=== PATIENT | female | born 1990 | race Caucasian/White ===

== ENCOUNTER 2016-12-17 18:29 | Emergency (ER) | payer OTHER ==
[~2016-12-17] VITALS: Ht 172.7 cm; Wt 80.7 kg
[2016-12-17 17:27] VITALS: BP 113/76
[~2016-12-17 18:29] MED LIST: BENADRYL ALLERG25 M1 PO; PRENATAL LOW IR1 TA1 PO
[2016-12-17 19:14] VITALS: BP 117/73
--- NOTE | 2016-12-17 20:05 | NUR ---
PT TAKEN TO BED 5
--- NOTE | 2016-12-17 20:10 | NUR ---
C/O RIGHT SIDED TIDWELL X 2 DAYS---NO INJURY DENIED N/V. WENT TO L&D TODAY, CLEARED CURRENT FHT 135---37 3/7 WKS IUP
--- NOTE | 2016-12-17 20:22 | NUR ---
Dr. Webster evaluating patient at bedside.
[2016-12-17] MEDS ORDERED: KETOROLAC 60 MG/2 ML VIAL IM ONE (20:30)
[2016-12-17 21:29] VITALS: BP 114/70
--- NOTE | 2016-12-17 21:30 | NUR ---
Patient discharged with v/s stable. Written and verbal after care instructions given and explained. Patient alert, oriented and verbalized understanding of instructions. Ambulatory with steady gait. All questions addressed prior to discharge. ID band removed. Patient advised to follow up with PMD. Rx of MOTRIN 800MG PO given. Patient educated on indication of medication including possible reaction and side effects. Opportunity to ask questions provided and answered.
== END 2016-12-17 21:30 | disposition home or self-care (01) ==
LOC: EDSTATUS 18:29 → MED 18:29
DX: O26.893 Other specified pregnancy related conditions, third trimester (principal); G44.209 Tension-type headache, unspecified, not intractable; Z3A.32 32 weeks gestation of pregnancy
CPT/HCPCS: 59025; 96372; 99283; J1885